=== PATIENT | male | born 1990 | race African-American/Black ===

== ENCOUNTER 2016-12-20 04:20 | Emergency (ER) | payer OTHER ==
--- NOTE | 2016-12-20 06:22 | ER Document Report ---
ED Cardiac - General Chief Complaint: Chest Pain Stated Complaint: CHEST PRESSURE TRAVEL OUTSIDE OF THE [place] IN LAST 30 DAYS: No - Related Data Allergies/Adverse Reactions: hydrocodone Allergy (Verified 07/02/16 18:17) Past Medical History - Social History Smoking Status: Never Smoker Frequency of alcohol use: None Drug Abuse: None Family History: Reviewed & Not Pertinent Patient has suicidal ideation: No Patient has homicidal ideation: No - Past Medical History Cardiac Medical History: Reports: Hx Hypertension Renal/ Medical History: Denies: Hx Peritoneal Dialysis Past Surgical History: Reports: Hx Abdominal Surgery - childhood hernia repair, Hx Oral Surgery - wisdom - Immunizations Immunizations up to date: Yes Hx Diphtheria, Pertussis, Tetanus Vaccination: Yes Physical Exam - Vital signs Vitals: Temp Pulse BP Pulse Ox 97.9 F 92 148/88 H 97 12/20/16 04:31 12/20/16 04:31 12/20/16 04:31 12/20/16 04:31 Course - Vital Signs Vital signs: Temp Pulse Resp BP Pulse Ox 98.4 F 85 18 105/59 L 96 12/20/16 06:20 12/20/16 06:20 12/20/16 06:20 12/20/16 06:20 12/20/16 06:20
--- NOTE | 2016-12-20 06:26 | ER Document Report ---
ED General - General Mode of Arrival: Ambulatory Information source: Patient <AILYN GONZALEZ - Last Filed: 12/20/16 09:41> - General Mode of Arrival: Ambulatory Information source: Patient TRAVEL OUTSIDE OF THE [place] IN LAST 30 DAYS: No - HPI Onset: This morning Onset/Duration: Sudden Quality of pain: Dull, Pressure Severity: Severe Associated symptoms: Headache, Shortness of breath Exacerbated by: Denies Relieved by: Denies Similar symptoms previously: Yes - twice previously, worked up at [facility] and told "TIA". Recently seen / treated by doctor: Yes <ANDIE GARCÍA - Last Filed: 12/20/16 10:57> - General Chief Complaint: Chest Pain Stated Complaint: CHEST PRESSURE - HPI Notes: Patient presents stating that at about 3 AM this morning about 3:30 he developed chest pressure with some shortness of breath headache. Patient said he got up and he felt a little bit dizzy. Described the pain as a dull pressure- like pain. He indicates that he has had symptoms like this before about 3 months ago and he was seen by didn't and says he was told that he had a "TIA". He said that this happened again about a month ago and he was seen here at this hospital and had a workup which was unremarkable and was told that he was fine. He has a follow-up appointment on the with a primary care physician at the [place]. The patient denies any aggravating or alleviating features. He denies any medical history. Denies any lung problems no reflux. Patient is not on any medications and he is not treated for high blood pressure. He does not smoker but he does dip. No early family history of cardiac disease. (ANDIE GARCÍA) - Related Data Allergies/Adverse Reactions: hydrocodone Allergy (Verified 07/02/16 18:17) Past Medical History - General Information source: Patient - Social History Smoking Status: Never Smoker Chew tobacco use (# tins/day): Yes Frequency of alcohol use: None Drug Abuse: None Family History: Reviewed & Not Pertinent Patient has suicidal ideation: No Patient has homicidal ideation: No - Past Medical History Cardiac Medical History: Reports: Hx Hypertension Renal/ Medical History: Denies: Hx Peritoneal Dialysis Past Surgical History: Reports: Hx Abdominal Surgery - childhood hernia repair, Hx Oral Surgery - wisdom - Immunizations Immunizations up to date: Yes Hx Diphtheria, Pertussis, Tetanus Vaccination: Yes <RAQUELANDIE - Last Filed: 12/20/16 10:57> Review of Systems <KATHERINEHARJIT HOLLANDINE - Last Filed: 12/20/16 09:41> <RAQUELANDIE - Last Filed: 12/20/16 10:57> - Review of Systems Notes: Total of 11 systems were reviewed. Pertinent positives and negatives are included in history of present illness. (ANDIE GARCÍA) Physical Exam <HARJIT GONZALEZINE - Last Filed: 12/20/16 09:41> - Vital signs Interpretation: Normal, Hypertensive - General General appearance: Appears well, Alert - HEENT Head: Normocephalic, Atraumatic Eyes: Normal Pupils: PERRL - Respiratory Respiratory status: No respiratory distress Chest status: Nontender Breath sounds: Normal Chest palpation: Normal - Cardiovascular Rhythm: Regular Heart sounds: Normal auscultation Murmur: No - Abdominal Inspection: Normal Distension: No distension Bowel sounds: Normal Tenderness: Nontender Organomegaly: No organomegaly - Extremities General upper extremity: Normal inspection, Nontender, Normal color, Normal ROM General lower extremity: Normal inspection, Nontender, Normal color, Normal ROM , Normal weight bearing. No: Tamra's sign - Neurological Neuro grossly intact: Yes Cognition: Normal Orientation: AAOx4 Belden Coma Scale Eye Opening: Spontaneous Belden Coma Scale Verbal: Oriented Timo Coma Scale Motor: Obeys Commands Belden Coma Scale Total: 15 Speech: Normal Motor strength normal: LUE, RUE, LLE, RLE Sensory: Normal - Psychological Associated symptoms: Normal affect, Normal mood - Skin Skin Temperature: Warm Skin Moisture: Dry Skin Color: Normal <RAQUELMOLLYANDIE - Last Filed: 12/20/16 10:57> - Vital signs Vitals: Temp Pulse BP Pulse Ox 97.9 F 92 148/88 H 97 12/20/16 04:31 12/20/16 04:31 12/20/16 04:31 12/20/16 04:31 (AILYN GONZALEZ) (ANDIE GARCÍA) - Abdominal Notes: Large habitus (ANDIE GARCÍA) Course - Laboratory Result Diagrams: 12/20/16 06:36 12/20/16 06:36 <AILYN GONZALEZ - Last Filed: 12/20/16 09:41> - Laboratory Result Diagrams: 12/20/16 06:36 12/20/16 06:36 <ANDIE GARCÍA - Last Filed: 12/20/16 10:57> - Re-evaluation Re-evalutation: 12/20/16 09:25 Patient was re-checked at this time. Patient was sleeping on bed comfortably. Patient's vital signs were stable. A second troponin will be tested and if it is within normal limits the patient will be discharged. (AILYN GONZALEZ) 12/20/16 10:57 Patient's repeat troponin was still negative. Plan to discharge home with follow -up as he is already scheduled. (ANDIE GARCÍA) - Vital Signs Vital signs: Temp Pulse Resp BP Pulse Ox 98.7 F 85 23 H 128/75 H 94 12/20/16 10:00 12/20/16 06:20 12/20/16 10:04 12/20/16 10:04 12/20/16 10:04 (AILYN GONZALEZ) (ANDIE GARCÍA) - Laboratory Laboratory results interpreted by me: 12/20/16 06:36 Hgb 13.0 L MCH 26.9 L (AILYN GONZALEZ) - EKG Interpretation by Me Additional EKG results interpreted by me: 12/20/16 06:22 Heart rate 87, normal sinus rhythm, normal axis, normal intervals, no ST elevations, baseline wandering in leads 1 and 2, as interpreted by me. (ANDIE GARCÍA) Discharge <AILYN GONZALEZ - Last Filed: 12/20/16 09:41> <ANDIE GARCÍA - Last Filed: 12/20/16 10:57> - Discharge Clinical Impression: Chest pain Qualifiers: Chest pain type: unspecified Qualified Code(s): R07.9 - Chest pain, unspecified Condition: Stable Disposition: HOME, SELF-CARE Instructions: Chest Pain of Unclear Cause ([facility]) Additional Instructions: Follow-up with the primary provider as you have already arranged for Dec 29. Return to emergency department for any worsening or concerning symptoms. Forms: Return to Work Scribe Attestation: 02/16/17 10:05 I personally performed the services described in the documentation, reviewed and edited the documentation which was dictated to the scribe in my presence, and it accurately records my words and actions. (ANDIE GARCÍA) Scribe Documentation - Scribe Written by Scribe:: Ailyn Gonzalez 12/20/16 09:42 acting as scribe for :: Barnett <AILYN GONZALEZ - Last Filed: 12/20/16 09:41>
[2016-12-20 06:47] LABS: ABSOLUTE EOSINOPHILS # (AUTO) 0.1 10^3/uL (0.0-0.6); ABSOLUTE LYMPHOCYTES (AUTO) 2.4 10^3/uL (0.5-4.7); ABSOLUTE MONOCYTES (AUTO) 0.4 10^3/uL (0.1-1.4); ABSOLUTE NEUT (AUTO) 2.9 10^3/uL (1.7-8.2); BASOPHILS % (AUTO) 0.5 % (0-2); EOSINOPHILS % (AUTO) 1.2 % (0-6); LYMPHOCYTES % (AUTO) 40.9 % (13-45); MEAN CORPUSCULAR HEMOGLOBIN 26.9 pg (27.0-33.4); MEAN CORPUSCULAR HGB CONC 33.3 g/dL (32.0-36.0); MEAN CORPUSCULAR VOLUME 81 fl (80-97); RED BLOOD COUNT 4.83 10^6/uL (4.35-5.55); RED CELL DISTRIBUTION WIDTH 13.9 % (11.5-14.0); SEGMENTED NEUTROPHILS % (AUTO) 50.4 % (42-78); WHITE BLOOD COUNT 5.8 10^3/uL (4.0-10.5)
[2016-12-20 07:00] LABS: ALANINE AMINOTRANSFERASE 42 U/L (21-72); ALBUMIN 3.8 g/dL (3.5-5.0); ALKALINE PHOSPHATASE 60 U/L (38-126); ANION GAP 11 (5-19); ASPARTATE AMINO TRANSFERASE 24 U/L (17-59); BILIRUBIN,TOTAL 0.3 mg/dL (0.2-1.3); BLOOD UREA NITROGEN 16 mg/dL (7-20); CALCIUM 9.7 mg/dL (8.4-10.2); CARBON DIOXIDE 26 mmol/L (22-30); CHLORIDE 105 mmol/L (98-107); CREATININE RESULT 1.09 mg/dL (0.52-1.25); GLUCOSE 105 mg/dL (75-110); LIPASE 38.4 U/L (23-300); POTASSIUM 4.3 mmol/L (3.6-5.0); SODIUM 141.8 mmol/L (137-145); TOTAL PROTEIN 7.7 g/dL (6.3-8.2)
[2016-12-20 10:26] VITALS: BP 128/75
--- NOTE | 2016-12-20 11:14 | EKG REPORT ---
SEVERITY:- NORMAL ECG - SINUS RHYTHM : Confirmed by: Alesha Osorio 20-Dec-2016 11:14:15
== END 2016-12-20 11:10 | disposition home or self-care (01) ==
LOC: ER 04:20
DX: R07.89 Other chest pain (principal); R51 Headache; R06.02 Shortness of breath; R42 Dizziness and giddiness; I10 Essential (primary) hypertension; Z72.0 Tobacco use; Z86.73 Personal history of transient ischemic attack (TIA), and cerebral infarction without residual deficits; Z88.5 Allergy status to narcotic agent
CPT/HCPCS: 36415; 71020; 80053; 83690; 84484; 85025; 93005; 93010; 99285